=== PATIENT | male | born 1985 | race African-American/Black ===

== ENCOUNTER 2018-01-30 22:11 | Emergency (ER) | payer OTHER ==
[2018-01-30 23:20] VITALS: BP 129/77
[2018-01-31] MEDS ORDERED: NAPROXEN 250 MG TABLET PO ONE (00:08)
--- NOTE | 2018-01-31 00:10 | ER Document Report ---
ED General - General Chief Complaint: Neck Pain >24hrs old Stated Complaint: NECK PAIN Time Seen by Provider: 01/30/18 23:49 TRAVEL OUTSIDE OF THE [place] IN LAST 30 DAYS: No - HPI Notes: 32-year-old male presents with neck pain. Patient describes waking up with pain in his left posterior lateral neck. No trauma. No numbness or tingling. Fever, chills or sweats. No other modifying factors, no other associated symptoms, no other provocative or palliative factors. Throbbing and aching in nature. Sharp at times with motion. - Related Data Allergies/Adverse Reactions: No Known Allergies Allergy (Unverified 01/30/18 22:15) Past Medical History - Social History Smoking Status: Smoker,Current Status Unk Family History: Reviewed & Not Pertinent - Medical History Medical History: Negative Review of Systems - Review of Systems Notes: Review of systems as in history of present illness, otherwise no significant headache, chest pain, abdominal pain. Physical Exam - Vital signs Vitals: Temp Pulse Resp BP Pulse Ox 98.3 F 68 16 129/77 H 100 01/30/18 23:18 01/30/18 23:18 01/30/18 23:18 01/30/18 23:18 01/30/18 23:18 - Notes Notes: General: Well devloped, no acute distress. HEENT: Normocephalic, atraumatic. Pupils equal round reactive to light. Mucosa moist. No JVD. Posterior sternocleidomastoid spasm and mild tenderness. No bruit, no erythema or warmth. Range of motion limited turning the left secondary to pain Chest: No trauma, normal excursion. Respiratory: Good air exchange, normal excursion. Cardiac: Regular rhythm Abdomen: Soft, benign. Nondistended. Back: No asymmetry or gross abnormality. Motor: Grossly normal power and tone. Neurologic: Alert, nonfocal. Vascular: Well perfused Skin: No petechiae or purpura Course - Re-evaluation Re-evalutation: 01/31/18 00:30 This is an exceptionally well-appearing male with likely torticollis. Less likely cervical radiculopathy. No evidence of vascular emergency, no high-risk features. Imaging would not be helpful at this point. Will treat conservatively with NSAIDs and Flexeril, outpatient follow-up. - Vital Signs Vital signs: Temp Pulse Resp BP Pulse Ox 98.3 F 68 16 129/77 H 100 01/30/18 23:18 01/30/18 23:18 01/30/18 23:18 01/30/18 23:18 01/30/18 23:18 Discharge - Discharge Clinical Impression: Neck pain Condition: Good Disposition: HOME, SELF-CARE Instructions: Virgil (SOPHIA) Prescriptions: Cyclobenzaprine HCl [Flexeril 10 mg Tablet] 10 mg PO TIDP PRN #15 tab PRN Reason: Naproxen 500 mg PO Q12 PRN #12 tablet PRN Reason:
== END 2018-01-31 00:43 | disposition home or self-care (01) ==
LOC: ER 22:11
DX: M54.2 Cervicalgia (principal); F17.200 Nicotine dependence, unspecified, uncomplicated
CPT/HCPCS: 99283